=== PATIENT | female | born 1995 ===

== ENCOUNTER 2022-04-27 00:46 | Inpatient (IN) | payer MEDICAID ==
[2022-04-27] MEDS ORDERED: Sodium Chloride 0.9% 10 ML Syringe FLUSH PRN (01:07)
[2022-04-27] MEDS ORDERED: Lidocaine 1% 50 ML MDV INJECT PRN (01:07)
[2022-04-27] MEDS ORDERED: Misoprostol 200 MCG Tab PO PRN (01:07)
[2022-04-27] MEDS ORDERED: Water For Irrigation,Sterile 1,000 ML Container IRR PRN (01:07)
[2022-04-27] MEDS ORDERED: Sodium Chloride 0.9% 20 ML SDV IV PRN (01:07)
[2022-04-27] MEDS ORDERED: Sodium Chloride 0.9% 2.5 ML Syringe FLUSH PRN (01:07)
[2022-04-27] MEDS ORDERED: Tranexamic Acid 1,000 MG in Sodium Chloride 0.9% 100 ML IV PRN ×2 (01:07→15:51)
[2022-04-27] MEDS ORDERED: Methylergonovine 0.2 MG/1 ML Amp IM PRN ×2 (01:07→15:51)
[2022-04-27] MEDS ORDERED: Carboprost Tromethamine 250 MCG/1 ML Amp IM PRN (01:07)
[2022-04-27] MEDS ORDERED: Butorphanol 1 MG/ML SDV IVPUSH PRN (01:07)
[2022-04-27] MEDS ORDERED: Terbutaline 1 MG/ML SDV SUBCUT PRN (01:13)
[2022-04-27] MEDS ORDERED: Oxytocin/0.9 % Sodium Chloride 30 UNIT/500 ML BAG IV SCH ×2 (01:15)
[2022-04-27] MEDS ORDERED: Lactated Ringers 1,000 ML IV SCH (01:15)
[2022-04-27] MEDS ORDERED: Misoprostol 25 MCG (1/4 of 100 MCG) Tab VAG PRN ×2 (01:30→05:30)
[2022-04-27] MEDS ORDERED: Insulin Regular in 0.9 % NACL 100 ML IV SCH (02:30)
[2022-04-27] MEDS: Dextrose 5%-0.9% NaCl 1,000 ML IV SCH ×2 (02:30→11:42)
[2022-04-27] MEDS ORDERED: Phenylephrine HCl In 0.9% NaCl 1 MG/10 ML Vial IVPUSH PRN (07:32)
[2022-04-27] MEDS ORDERED: ePHEDrine 50 MG/ML SDV IVPUSH PRN ×2 (07:32)
[2022-04-27] MEDS ORDERED: Ropivacaine HCl/PF 400 MG in Premix Bag 1 BAG EPIDUR SCH (07:45)
[2022-04-27] MEDS ORDERED: Lanolin 100% Cream 7 GM Tube TOP PRN (15:51)
[2022-04-27] MEDS ORDERED: Benzocaine/Menthol 20%-0.5% Spray 78 GM Cannister TOP PRN (15:51)
[2022-04-27] MEDS ORDERED: Bisacodyl 10 MG Supp RECTAL PRN (15:51)
[2022-04-27] MEDS ORDERED: Witch Hazel Medicated Pads 40/Jar TOP PRN (15:51)
[2022-04-27] MEDS ORDERED: Docusate Sodium 100 MG Cap PO PRN (15:51)
[2022-04-27] MEDS ORDERED: Ibuprofen 400 MG Tab PO PRN (15:51)
[2022-04-27] MEDS ORDERED: Acetaminophen 500 MG Tab PO PRN (15:51)
[2022-04-27] MEDS: Ibuprofen 800 MG Tab PO PRN (18:15)
[2022-04-27] MEDS: Acetaminophen 500 MG Tab PO PRN ×2 (18:16→22:39)
[2022-04-27] MEDS: Phenylephrine HCl In 0.9% NaCl 1 MG/10 ML Vial IVPUSH SCH (19:15)
[2022-04-28] MEDS ORDERED: Prenatal Multivitamin with Calcium/Folic Acid/Iron Tab PO SCH (09:00)
[2022-04-28] MEDS: Acetaminophen 500 MG Tab PO PRN (13:13)
[2022-04-28] MEDS: Ibuprofen 800 MG Tab PO PRN (13:13)
== END 2022-04-28 14:10 | disposition home or self-care (01) | DRG 805 ==
LOC: MW.OBCHECK 00:46 → MW.OB 00:47 → MW.OBCHECK 01:07 → MW.OB 01:07 → OBSVTOIN 15:26 → MW.OB 18:43
PROVIDERS: ADMIT Obstetrics & Gynecology; ATTEND Obstetrics & Gynecology
PROC: 10E0XZZ Delivery of Products of Conception, External Approach (ICD-10-PCS; principal; 2022-04-27)
PROC: 3E033VJ Introduction of Other Hormone into Peripheral Vein, Percutaneous Approach (ICD-10-PCS; 2022-04-27)
PROC: 3E033VJ Introduction of Other Hormone into Peripheral Vein, Percutaneous Approach (ICD-10-PCS; 2022-04-27)
PROC: 3E0R3BZ Introduction of Anesthetic Agent into Spinal Canal, Percutaneous Approach (ICD-10-PCS; 2022-04-27)
PROC: 00HU33Z Insertion of Infusion Device into Spinal Canal, Percutaneous Approach (ICD-10-PCS; 2022-04-27)
PROC: 10H07YZ Insertion of Other Device into Products of Conception, Via Natural or Artificial Opening (ICD-10-PCS; 2022-04-27)
DX: O24.425 Gestational diabetes mellitus in childbirth, controlled by oral hypoglycemic drugs (principal); Z3A.37 37 weeks gestation of pregnancy; Z37.0 Single live birth; K83.1 Obstruction of bile duct; O26.62 Liver and biliary tract disorders in childbirth; Z20.822 Contact with and (suspected) exposure to COVID-19; O99.344 Other mental disorders complicating childbirth; F41.9 Anxiety disorder, unspecified; F32.A Depression, unspecified; O99.214 Obesity complicating childbirth; E66.9 Obesity, unspecified
CPT/HCPCS: 36415; 51702; 59025; 59409; 82803; 82947; 85014; 85018; 85027; 86592; 86850; 86900; 86901; 86920; A9270-GY; J0595; J1815; J2590; J3490; J7042; U0002